=== PATIENT | male | born 1960 | race Caucasian/White ===

== ENCOUNTER 2021-05-18 14:54 | Emergency (ER) | payer BC ==
--- NOTE | 2021-05-18 15:00 | ERPHSYRPT ---
- History of Present Illness Time Seen by Provider: 05/18/21 15:00 Source: patient Exam Limitations: no limitations Physician History: This is a 61-year-old white male patient of the [facility] in [place] who has had 2-month history of intermittent and worsening joint pain in multiple sites. They include bilateral shoulders, bilateral elbows, bilateral hips, bilateral knees. He has a history of hypertension and notes the only medication he is on. He has not had any acute traumatic injury. He could not get into the [facility] today and therefore they told him to come to the emergency department for evaluation and to obtain a Covid test as well as management of of his acute pain. Patient took an [id number] Covid test which was negative per his report. The patient denies chest pain. He denies shortness of breath. He has had no nausea vomiting has had some diarrhea and occasionally has a fever. The last time he was seen at the [facility] was in November 2020. The patient stated that the [facility] close to call them tomorrow with an outpatient appointment date and time. Timing/Duration: worse, other (2 months) Severity: moderate Associated Symptoms: denies symptoms, No nausea, No vomiting, No abdominal pain, No shortness of breath, No chest pain Allergies/Adverse Reactions: No Known Drug Allergies Allergy (Unverified 05/18/21 15:16) Travel Risk - International Travel Have you traveled outside of the country in past 3 weeks: No - Coronavirus Screening Are you exhibiting any of the following symptoms?: Yes Symptoms: Vomiting/Diarrhea (Diarrhea), Headaches/Body Aches/Fatigue - Vaccine Status Have you recieved a Covid-19 vaccination: Yes - Review of Systems Constitutional: No Symptoms Eyes: No Symptoms Ears, Nose, & Throat: No Symptoms Respiratory: No Symptoms Cardiac: No Symptoms Abdominal/Gastrointestinal: Diarrhea, No Abdominal Pain, No Nausea, No Vomiting Genitourinary Symptoms: No Symptoms Musculoskeletal: Arthralgias, Myalgias Skin: No Symptoms Neurological: No Symptoms Psychological: No Symptoms Endocrine: No Symptoms Hematologic/Lymphatic: No Symptoms Immunological/Allergic: No Symptoms All Other Systems: Reviewed and Negative - Past Medical History Pertinent Past Medical History: Yes - Past Surgical History Past Surgical History: Yes - Nursing Vital Signs Nursing Vital Signs: Pain Scale Pain Intensity [Generalized] 7 Pain Intensity 6 - Physical Exam General Appearance: no apparent distress, alert, anxiety Eye Exam: PERRL/EOMI, eyes nml inspection Ears, Nose, Throat Exam: normal ENT inspection, moist mucous membranes Neck Exam: normal inspection, non-tender, supple, full range of motion Respiratory Exam: normal breath sounds, lungs clear, airway intact, No chest tenderness, No respiratory distress Cardiovascular Exam: regular rate/rhythm, normal heart sounds, normal peripheral pulses Gastrointestinal/Abdomen Exam: soft, normal bowel sounds, No tenderness Rectal Exam: not done Back Exam: normal inspection, normal range of motion, No CVA tenderness, No vertebral tenderness Extremity Exam: normal inspection, normal range of motion, pelvis stable, other (Patient has multiple joints that ache.) Neurologic Exam: alert, oriented x 3, cooperative, senior it engineer II-XII nml as tested, normal mood/affect, nml cerebellar function, nml station & gait, sensation nml Skin Exam: normal color, warm, dry Lymphatic Exam: No adenopathy SpO2 Interpretation: normal O2 Delivery: Room Air - Course Nursing assessment & vital signs reviewed: Yes Ordered Tests: Medication Summary Discontinued Medications Generic Name Dose Route Start Last Admin Trade Name Freq PRN Reason Stop Dose Admin Methylprednisolone Sodium 0 mg 05/18/21 15:34 05/18/21 15:43 Succinate 125 mg/ Sterile IV 05/18/21 15:35 125 mg Water 2 ml STAT ONE Administration Methylprednisolone Sodium Succinate Confirm 05/18/21 15:41 Methylprednis Sod Succ 125 Mg/2 Ml Vial Administered 05/18/21 15:42 Dose 125 mg .ROUTE .STK-MED ONE Sterile Water Confirm 05/18/21 15:41 Water For Injection,Sterile 10 Ml Vial Administered 05/18/21 15:42 Dose 10 ml IJ .STK-MED ONE - Departure Departure Disposition: Home Clinical Impression: Arthritis Condition: Stable Critical Care Time: No Additional Instructions: Take your medication as prescribed. Follow-up with your Covid test tomorrow as an outpatient. Quarantine yourself until the results return. Follow-up with the [facility] tomorrow for further evaluation and management Prescriptions: Ondansetron ODT 4 MG [Zofran Odt 4 mg] 4 mg PO Q6H PRN PRN #10 tablet PRN Reason: Vomiting Hydrocodone/APAP 5/325 [[place] 5/325 mg] 1 each PO Q12H PRN PRN #4 tablet MDD 2 PRN Reason: Pain Prednisone 10 mg [Deltasone 10 mg] 10 mg PO TID #12 tablet Orphenadrine Citrate 100 mg [Norflex 100 MG Tablet] 100 mg PO BID #10 tab
[2021-05-18] MEDS ORDERED: solu-MEDROL 125 MG, Sterile H2O 10 ml 2 ML IV ONE ×2 (15:34)
[2021-05-18] MEDS ORDERED: Sterile H2O 10 ml IJ ONE (15:41)
[2021-05-18] MEDS ORDERED: solu-MEDROL ONE (15:41)
[2021-05-18 16:15] VITALS: BP 170/96; PULSE 92; O2SAT 97
[2021-05-18 16:45] LABS: INFLUENZA A NEGATIVE (NEGATIVE); INFLUENZA B NEGATIVE (NEGATIVE); RESPIRATORY SYNCTIAL VIRUS NEGATIVE (Negative); SARS-CoV-2 Xpert Express NEGATIVE (NEGATIVE)
== END 2021-05-18 16:23 | disposition home or self-care (01) ==
LOC: ED 14:54
DX: M19.09 Primary osteoarthritis, other specified site (principal); M25.59 Pain in other specified joint; R19.7 Diarrhea, unspecified; R50.9 Fever, unspecified; I10 Essential (primary) hypertension; Z79.891 Long term (current) use of opiate analgesic; Z79.52 Long term (current) use of systemic steroids
CPT/HCPCS: 0241U; 96374; 99284; J2930